=== PATIENT | female | born 1940 | race Caucasian/White ===

== ENCOUNTER 2017-11-26 20:03 | Observation (INO) ==
[2017-11-26 21:17] LABS: Baso % (Auto) 0.3 % (0.0-2.0); Eos # (Auto) 0.1 th/mm3 (0.0-0.4); Eos % (Auto) 1.3 % (0.0-4.0); Hematocrit 37.8 % (35.0-46.0); Hemoglobin 12.9 gm/dL (11.6-15.3); Lymph # (Auto) 1.2 th/mm3 (1.0-4.8); Lymph % (Auto) 17.7 % (9.0-44.0); Mean Corpuscular HGB Conc 34.2 % (32.0-36.0); Mean Corpuscular Hemoglobin 29.4 pg (27.0-34.0); Mean Platelet Volume 8.1 fL (7.0-11.0); Mono # (Auto) 0.5 th/mm3 (0.0-0.9); Mono % (Auto) 8.1 % (0.0-8.0); Neut % (Auto) 72.6 % (16.0-70.0); Platelet Count 240 th/mm3 (150-450); Red Blood Count 4.39 mil/mm3 (4.00-5.30); Red Cell Distribution Width 11.8 % (11.6-17.2); White Blood Count 6.8 th/mm3 (4.0-11.0)
[2017-11-26 21:24] LABS: Chloride 104 meq/L (98-107); Potassium 3.4 meq/L (3.5-5.1); Sodium 139 meq/L (136-145)
[2017-11-26 21:28] LABS: Anion Gap 5 meq/L (5-15); Blood Urea Nitrogen 20 mg/dL (7-18); Carbon Dioxide 29.9 meq/L (21.0-32.0); Glucose,Random 96 mg/dL (74-106); Magnesium 1.8 mg/dL (1.5-2.5)
--- NOTE | 2017-11-26 21:28 | ED ---
HPI General Chief Complaint: Fall Stated Complaint: Fall Time Seen by Provider: 11/26/17 20:45 Source: RN notes reviewed ([facility]) Mode of arrival: EMS Limitations: other (expressive aphasia) History of Present Illness HPI Narrative: 77-year-old female presents to the emergency department from local assisted living facility where staff noted patient to have 4 different falls today. Only one fall was reportedly witnessed. Patient was walking with her tray and a seem to lose her balance and fall. Subsequently patient was found 3 different times on the floor after an unwitnessed fall. Unknown if head injury. Patient has some form of expressive aphasia of unclear etiology and is not a good historian. Assisted living facility reports that patient has issue with conversational speech of uncertain etiology no report of stroke. Patient takes no blood thinning agents. Patient does have history of peripheral vascular disease and has undergone surgical intervention for ischemia. No report of recent fever. Patient has been at the facility for approximately 1 month and has been on the list to be seen by the but has not been seen in the past to Fridays. Patient has been noticed within the past 1 week to have large blisters to Facility physician for 2 weeks the heels of both feet of unclear etiology. Patient is identified to have a bruise to the right hip. Patient has had bilateral hip replacements in the past. Patient typically is amatory without assistive device. Patient had one episode of urinary incontinence associated with fall reported. Blood sugars have been adequately controlled. Patient has history of peripheral vascular disease diabetes pacemaker COPD depression dyslipidemia hypertension anemia PE and aortic stenting. MD complaint: Reports fall Related Data Home Medications Medication Instructions Recorded Confirmed acetaminophen [Mapap 325 mg PO Q4-6H PRN 11/26/17 11/26/17 (acetaminophen)] alendronate 70 mg PO QWEEK 11/26/17 11/26/17 [id number] 1 tab PO DAILY 11/26/17 11/26/17 [Cerovite Senior] omega 2-orp-qcg-fish oil [Fish Oil] 1,000 mg PO DAILY 11/26/17 11/26/17 Allergies Allergy/AdvReac Type Severity Reaction Status Date / Time aspirin Allergy Severe GI Unverified 11/26/17 20:17 DISTRESS IF UNCOATED ASPIRIN codeine Allergy Severe NAUSEA AND Unverified 11/26/17 20:17 VOMITING penicillin G Allergy Severe RASH,SHORTNESS Unverified 11/26/17 20:17 OF BREATH *MDRO Multi-Drug Resistant Allergy Unknown Diarrhea Uncoded 11/26/17 20:17 Organism Review of Systems ROS: all other systems reviewed are negative [facility] Medical History Medical History Atherosclerotic heart disease (Acute) COPD (chronic obstructive pulmonary disease) (Acute) GERD (gastroesophageal reflux disease) (Acute) History of anemia (Acute) History of diabetes mellitus (Acute) History of high cholesterol (Acute) Hx of major depression (Acute) Hypertension (Acute) Insomnia (Acute) Osteoarthritis (Acute) Pacemaker (Acute) Peripheral vascular disease (Acute) Polyneuropathy (Acute) Surgical history unknown (Acute) Surgical history unknown (Acute) Social History Social History Substance History: No History of Abuse Smoking Status: Unknown if ever smoked How Often Do You Have a Drink Containing Alcohol: Unable to Obtain Recent Travel in [facility] within the Last 8 Weeks: No Recent Out of Country Travel within the Last 8 Weeks: No Immunization History Tetanus Immunization: Unable to Assess Exam Narrative Exam Narrative: GENERAL: Well-developed well-nourished elderly female in no acute distress no respiratory distress GCS 13 SKIN: Focused skin assessment warm/dry. HEAD: Atraumatic. Normocephalic. No scalp soft tissue swelling abrasion laceration or bony abnormality to palpation. EYES: Pupils equal and round. No scleral icterus. No injection or drainage. Extraocular muscles intact. ENT: No nasal bleeding or discharge. Mucous membranes pink and moist. Airway is patent. NECK: Trachea midline. No JVD. Nontender to direct palpation along the cervical spine no bony step-off. CARDIOVASCULAR: Regular rate and rhythm. No murmur appreciated. RESPIRATORY: No accessory muscle use. Clear to auscultation. Breath sounds equal bilaterally. GASTROINTESTINAL: Abdomen soft, non-tender, nondistended. Hepatic and splenic margins not palpable. MUSCULOSKELETAL: No obvious deformities. No clubbing. No cyanosis. No edema. Bruising to the lateral aspect of the right hip subacute brown green discoloration. No limb length discrepancy. Left foot with amputated toes and various aged vesicles and blisters intact and interrupted. No antalgic movement when moving from lying supine to sitting upright which patient does independently without assistance from medical staff. No tenderness to direct palpation along the thoracic or lumbar spine no bony step-off no ecchymosis or abrasion to the upper or lower back or flank area. NEUROLOGICAL: Awake and alert. No obvious cranial nerve deficits. Motor grossly within normal limits. Normal speech. PSYCHIATRIC: Appropriate mood and affect; insight and judgment normal. Course Initial Documented Vital Signs Temperature 98.6 F 11/26/17 20:10 Pulse Rate 81 11/26/17 20:10 Respiratory Rate 20 11/26/17 20:10 Blood Pressure 161/76 H 11/26/17 20:10 Pulse Oximetry 98 11/26/17 20:10 Last Documented Vital Signs Temperature 98.6 F 11/26/17 20:10 Pulse Rate 77 11/26/17 22:37 Respiratory Rate 20 11/26/17 22:37 Blood Pressure 176/81 H 11/26/17 22:37 Pulse Oximetry 97 11/26/17 22:37 Medical Decision Making MDM Narrative Medical decision making narrative: 77-year-old female poor historian unclear extent of expressive aphasia and to what extent there may be a voluntary component however in view of inability to obtain further history from the patient and limited review of medical information provided by facility IV access obtained specimens collected and sent for resulting imaging studies ordered CT brain noncontrast suspicious for normal pressure hydrocephalus patient with frequent falls 3 of which were not witnessed today and one with episode of urinary incontinence as well as noted to have urinary tract infection will place patient in observation status to further assess if she does have findings to support normal pressure hydrocephalus and management of such. Patient given first dose of antibiotic in the emergency department. Patient's case discussed with on-call [facility] MD Dr Julian for observation admission Medical Screen Exam Complete: Yes Emergency Medical Condition: Yes Differential Diagnosis Differential Diagnosis: Generalized weakness, electrolyte disturbance, UTI, sepsis, arrhythmia, TIA, CVA, minor closed head injury, ICH, contusion, sprain strain subluxation fracture Medical Records Medical records reviewed: Yes I reviewed the patient's medical records. Lab Data Lab results reviewed: Yes I reviewed the patient's lab results. Result diagrams: 11/26/17 21:13 11/26/17 21:13 Lab Results 11/26/17 11/26/17 11/26/17 Range/Units 21:13 21:13 21:50 CBC w Diff Auto diff final WBC 6.8 (4.0-11.0) th/mm3 RBC 4.39 (4.00-5.30) mil/mm3 Hgb 12.9 (11.6-15.3) gm/dL Hct 37.8 (35.0-46.0) % MCV 86.0 (80.0-100.0) fL MCH 29.4 (27.0-34.0) pg MCHC 34.2 (32.0-36.0) % RDW 11.8 (11.6-17.2) % Plt Count 240 (150-450) th/mm3 MPV 8.1 (7.0-11.0) fL Neut % (Auto) 72.6 H (16.0-70.0) % Lymph % (Auto) 17.7 (9.0-44.0) % [place] % (Auto) 8.1 H (0.0-8.0) % Eos % (Auto) 1.3 (0.0-4.0) % Baso % (Auto) 0.3 (0.0-2.0) % Neut # (Auto) 5.0 (1.8-7.7) th/mm3 Lymph # (Auto) 1.2 (1.0-4.8) th/mm3 [place] # (Auto) 0.5 (0.0-0.9) th/mm3 Eos # (Auto) 0.1 (0.0-0.4) th/mm3 Baso # (Auto) 0.0 (0.0-0.2) th/mm3 WBC Differential . Differential Comment . Sodium 139 (136-145) meq/L Potassium 3.4 L (3.5-5.1) meq/L Chloride 104 (98-107) meq/L Carbon Dioxide 29.9 (21.0-32.0) meq/L Anion Gap 5 (5-15) meq/L BUN 20 H (7-18) mg/dL Creatinine 0.69 (0.50-1.00) mg/dL Estimated GFR 83 L (>89) mL/min Random Glucose 96 (74-106) mg/dL Calcium 8.0 L (8.5-10.1) mg/dL Magnesium 1.8 (1.5-2.5) mg/dL Total Bilirubin 0.5 (0.2-1.0) mg/dL AST 21 (15-37) U/L ALT 19 (10-53) U/L Alkaline Phosphatase 110 (45-117) U/L Troponin I Less than 0.02 L (0.02-0.05) ng/mL Total Protein 6.1 L (6.4-8.2) g/dL Albumin 3.0 L (3.4-5.0) g/dL Urine Color Yellow (Yellw/Straw) Urine Clarity Clear (Clear) Urine pH 5.5 (5.0-8.5) Ur Specific [place] 1.025 (1.002-1.035) Urine Protein Negative (Neg-Trace) mg/dL Urine Glucose (UA) Negative (Negative) mg/dL Urine Ketones Trace H (Negative) mg/dL Urine Occult Blood Trace (Negative) Urine Nitrate Negative (Negative) Urine Bilirubin Negative (Negative) Urine Urobilinogen 0.2 (Less than 2) mg/dL Ur Leukocyte Esterase Small H (Negative) Urine RBC 0-3 (0-3) /hpf Urine WBC 21-50 H (0-5) /hpf Ur Squamous Epith Cells 0-5 (0-5) /hpf Urine Bacteria Few H (None) /hpf Micro UA Comment Cath-culture ind Ur Microscopic Review Microscopic reviewed Urine Culture Comments Cath-cult indicated Imaging Data Radiologist's impression: Chest X-Ray 11/26/17 20:58 CONCLUSION: Mild compensated cardiomegaly. Pelvis X-Ray 11/26/17 20:58 CONCLUSION: Osteopenia without displaced fracture. Head CT 11/26/17 22:01 CONCLUSION: No evidence of acute intracranial pathology. No masses are identified. Possible normal pressure hydrocephalus. Correlation with clinical findings is necessary. . Cervical Spine CT 11/26/17 22:05 CONCLUSION: 1. Extensive multilevel degenerative disc disease without evidence of fracture ECG Data EKG Prior to Arrival: No Prior ECG tracings: not available for review Interpretation: EKG: Normal sinus rhythm rate [address] elevation injury pattern or ectopy noted nonspecific T wave changes noted anterolaterally Discharge Plan Discharge Disposition Patient Disposition: 30 Still Patient Discharge Condition Condition: Stable Discharge Details Diagnosis: Generalized weakness, UTI (urinary tract infection), Normal pressure hydrocephalus Physicians Team ED Provider: Ale Mclaughlin Primary Care Provider: UNKNOWN, Attending Provider: Melinda Julian ED Status: Admitted Observation Patient
[2017-11-26 21:31] LABS: Alanine Aminotransferase 19 U/L (10-53); Aspartate Aminotransferase 21 U/L (15-37); Glomerular Filtration Rate 83 mL/min (>89)
[2017-11-26 21:32] LABS: Total Protein 6.1 g/dL (6.4-8.2)
[2017-11-26 21:34] LABS: Alkaline Phosphatase 110 U/L (45-117)
--- NOTE | 2017-11-26 21:54 | XR ---
EXAM DATE: 11/26/2017 8:58 PM EDT AGE/SEX: 77 years / Female INDICATIONS: Trauma, fall. CLINICAL DATA: This is the patient's initial encounter. Patient reports that signs and symptoms have been present for 1 day and indicates a pain score of Nonresponsive. MEDICAL/SURGICAL HISTORY: None. . Bilateral hip replacement COMPARISON: [facility] [place] LATERAL ONLY WO AP PELVIS, 10/18/2012. . FINDINGS: Degenerative changes in the lower lumbar spine. Bilateral total hip arthroplasties Prostheses well seated. Alignment anatomic. Fracture not appreciated. CONCLUSION: Osteopenia without displaced fracture. Electronically signed by: Teofilo Torres MD 11/26/2017 9:53 PM EDT
--- NOTE | 2017-11-26 22:27 | XR ---
EXAM DATE: 11/26/2017 8:58 PM EDT AGE/SEX: 77 years / Female INDICATIONS: Trauma, fall. CLINICAL DATA: This is the patient's initial encounter. Patient reports that signs and symptoms have been present for 1 day and indicates a pain score of Nonresponsive. MEDICAL/SURGICAL HISTORY: Hypertension. Chronic obstructive pulmonary disease. Gastroesophage al reflux disease. Pacemaker. [place] [facility] [place]. . FINDINGS: Mild compensated cardiomegaly with surgical clips left upper lobe. No pneumothorax. No pleural effusi on. Anatomic alignment about both shoulders. CONCLUSION: Mild compensated cardiomegaly. Electronically signed by: Teofilo Torres MD 11/26/2017 10:25 PM EDT
[2017-11-26 22:34] LABS: Bilirubin,Urine Negative (Negative); Clarity,Urine Clear (Clear); Color,Urine Yellow (Yellw/Straw); Glucose,Urine (UA) Negative (Negative); Leukocyte Esterase,Urine Small (Negative); Nitrite,Urine Negative (Negative); PH,Urine 5.5 (5.0-8.5); Specific Gravity,Urine 1.025 (1.002-1.035); Urobilinogen,Urine 0.2 mg/dL (Less than 2)
[2017-11-26 22:47] LABS: Bacteria,Urine Few /hpf; RBC,Urine 0-3 /hpf (0-3); Squamous Epithelial Cell,Urine 0-5 /hpf (0-5); WBC,Urine 21-50 /hpf (0-5)
--- NOTE | 2017-11-26 23:40 | CT ---
EXAM DATE: 11/26/2017 10:46 PM EDT AGE/SEX: 77 years / Female INDICATIONS: Patient fall. CLINICAL DATA: This is the patient's initial encounter. Patient reports that signs and symptoms have been present for 1 day and indicates a pain score of Nonresponsive. MEDICAL/SURGICAL HISTORY: Chronic obstructive pulmonary disease. Gastroesophageal reflux disea se. Anemia. Atherosclerotic heart disease. Diabetes mellitus. High cholesterol. Hypertension. Pacemak er. Peripheral vascular disease. . RADIATION DOSE: 25.81 CTDI (mGy) COMPARISON: No prior exams available for comparison. TECHNIQUE: Contiguous axial images were obtained using helical multirow detector technique. The vol umetric data was post-processed with multiplanar reconstruction in oblique axial, sagittal, and coron al planes. Using automated exposure control and adjustment of the mA and/or kV according to patient s ize, radiation dose was kept as low as reasonably achievable to obtain optimal diagnostic quality martina ges. DICOM format image data is available electronically for review and comparison. FINDINGS: CT of the cervical spine was performed in sagittal and axial planes. There is anterolisthesis likely related to facet arthritis at C3-C4 likely related to facet arthritis. There is multilevel degenerati ve disc disease and marginal osteophyte formation maximal at C4-C5.. There is osteoarthritis involvin g the atlantoaxial joint with sclerosis and osteophyte formation. There is straightening of the dilip l cervical lordosis which may be secondary positioning or spasm. . No focal areas of marrow replacem ent are identified. The craniocervical junction appears normal. C2-C3: There is moderate facet arthritis on the right. There is no significant spinal canal stenosis . C3-C4: There is severe facet arthritis on the right. There is moderate neural foraminal narrowing o n the right. There is mild facet arthritis on the left. C4-C5: There is a large spur to the left. This compromises the nerve root exit zone. The neural fora bhupinder are clear bilaterally. C5-C6: There is uncovertebral joint hypertrophy bilaterally. There is moderate neural foraminal narr owing bilaterally. C6-C7: There is osteophytic ridging asymmetric to the right. There is uncovertebral joint hypertroph y on the right side. There is mild right-sided foraminal narrowing. C7-T1: No significant abnormalities identified. CONCLUSION: 1. Extensive multilevel degenerative disc disease without evidence of fracture Electronically signed by: Elieser Chen MD 11/26/2017 11:38 PM EDT
--- NOTE | 2017-11-26 23:41 | CT ---
EXAM DATE: 11/26/2017 10:46 PM EDT AGE/SEX: 77 years / Female INDICATIONS: Patient fall. CLINICAL DATA: This is the patient's initial encounter. Patient reports that signs and symptoms have been present for 1 day and indicates a pain score of Nonresponsive. MEDICAL/SURGICAL HISTORY: Chronic obstructive pulmonary disease. Gastroesophageal reflux disease. Atherosclerotic heart disease. Anemia. Diabetes mellitus. High cholesterol. Hypertension. Pacemaker. Peripheral vascular disease. . RADIATION DOSE: 56.57 CTDI (mGy) COMPARISON: No prior exams available for comparison. TECHNIQUE: CT of the head without contrast. Using automated exposure control and adjustment of the mA and/or kV according to patient size, radiation dose was kept as low as reasonably achievable to ob tain optimal diagnostic quality images. DICOM format image data is available electronically for revi ew and comparison. FINDINGS: Noncontrast axial head CT demonstrates the ventricles to be normal in size and configuration with a n ormal sulcal pattern. No acute intracranial hemorrhage, acute cortical infarction, mass or midline sh ift is seen. The ventricles are enlarged out of proportion to the sulcal atrophy. In addition the thi rd ventricle is somewhat prominent. Clinical correlation would be helpful in regards to the possibili ty of normal pressure hydrocephalus. Posterior fossa structures are unremarkable. Bone windows are unremarkable. CONCLUSION: No evidence of acute intracranial pathology. No masses are identified. Possible normal pressure hydr ocephalus. Correlation with clinical findings is necessary. . Electronically signed by: Elieser Chen MD 11/26/2017 11:39 PM EDT
[2017-11-26] MEDS ORDERED: Sodium Chlor 0.9% Inj 500 ML IV.SIG SCH (23:45)
[2017-11-26] MEDS ORDERED: Acetaminophen 500 MG Tablet PO ONE (23:47)
[2017-11-27] MEDS ORDERED: Acetaminophen 325 MG Tablet PO PRN (00:07)
[2017-11-27] MEDS ORDERED: Bisacodyl 10 MG Supp RECTAL PRN (00:07)
[2017-11-27] MEDS: Sod Chloride 0.9% Inj 1,000 ML IV.CONT SCH ×3 (00:54→21:47)
[2017-11-27] MEDS ORDERED: Senna/Docusate Sodium 8.6/50 MG Tablet PO SCH (09:00)
--- NOTE | 2017-11-27 13:41 | ECG ---
Date Performed: 11/26/2017 Time Performed: 21:21:57 PTAGE: 77 years EKG: Sinus rhythm NONSPECIFIC T-WAVE ABNORMALITY BORDERLINE ECG PREVIOUS TRACING : 10/10/2013 15.50 Since the previous tracing, no significant change noted DOCTOR: Jamel Flores Interpretating Date/Time 11/27/2017 13:40:40
--- NOTE | 2017-11-27 16:52 | P.HP ---
History of Present Illness Primary Care Physician: UNKNOWN Chief Complaint: Recurrent falls, diarrhea History of Present Illness: 77-year-old female who for past medical history of pacemaker implantation, suppressive aphasia, CAD, peripheral vascular disease, history of C. difficile in the past, hypertension was brought to the ED for evaluation of falls x4 of which one was witnessed at a local nursing facility where patient is a resident. Patient is a poor historian, and unable to provide any history at this time. The history is obtained from chart review below: "77-year-old female presents to the emergency department from local assisted living facility where staff noted patient to have 4 different falls today. Only one fall was reportedly witnessed. Patient was walking with her tray and a seem to lose her balance and fall. Subsequently patient was found 3 different times on the floor after an unwitnessed fall. Unknown if head injury. Patient has some form of expressive aphasia of unclear etiology and is not a good historian. [facility] living facility reports that patient has issue with conversational speech of uncertain etiology no report of stroke. Patient takes no blood thinning agents. Patient does have history of peripheral vascular disease and has undergone surgical intervention for ischemia. No report of recent fever. Patient has been at the facility for approximately 1 month and has been on the list to be seen by the but has not been seen in the past to Fridays. Patient has been noticed within the past 1 week to have large blisters to Facility physician for 2 weeks the heels of both feet of unclear etiology. Patient is identified to have a bruise to the right hip. Patient has had bilateral hip replacements in the past. Patient typically is amatory without assistive device. Patient had one episode of urinary incontinence associated with fall reported. Blood sugars have been adequately controlled. Patient has history of peripheral vascular disease diabetes pacemaker COPD depression dyslipidemia hypertension anemia PE and aortic stenting." While in the ED, a CT head was obtained and had a questionable finding of Possible normal pressure hydrocephalus. Patient was admitted on the floor and had few episode of loose stool for which C. difficile is being ruled out. Vitals with elevated BP. - Diagnosis (1) Fall (2) Generalized weakness (3) UTI (urinary tract infection) (4) Normal pressure hydrocephalus Review of Systems unobtainable due to mental condition PMF - History History Provided By: Patient, Medical Record - Medical History Medical History: Medical History (Last Reviewed 11/27/17 @ 07:18 by Jackson Rodas) Atherosclerotic heart disease COPD (chronic obstructive pulmonary disease) GERD (gastroesophageal reflux disease) History of anemia History of diabetes mellitus History of high cholesterol Hx of major depression Hypertension Insomnia Osteoarthritis Pacemaker Peripheral vascular disease Polyneuropathy Surgical history unknown Surgical history unknown - Tobacco History Second Hand Smoke Exposure: No Smoking Status: Never smoker - Alcohol History How Often Do You Have a Drink Containing Alcohol: Never - Substance Use History Substance History: No History of Abuse - Travel History Recent Travel in the [place] Within the Last 8 Weeks: No Recent Travel Out of the Country Within the Last 8 Weeks: No - Immunization History Tetanus Immunization: Unable to Assess Medications and Allergies Active Medications: Active Medications Acetaminophen (Tylenol) 650 mg PO Q4H PRN PRN Reason: Temp > 100.4 Al Hydroxide/Mg Hydroxide (Milk Of Magnkb Liq) 30 ml PO Q12H PRN PRN Reason: Mild Constipation Bisacodyl (Dulcolax Supp) 10 mg RECTAL DAILY PRN PRN Reason: SEVERE CONSITIPATION Enalaprilat (Vasotec Inj) 2.5 mg IV.PUSH Q6H PRN PRN Reason: SBP>160, DBP>90 Sodium Chloride (Ns Inj) 500 mls @ 0 mls/hr IV.SIG BOLUS AVRIL Last Infusion: 11/27/17 00:50 Dose: Infused Ciprofloxacin/Dextrose (Cipro 400 Mg/200 Ml Inj) 400 mg in 200 mls @ 200 mls/ hr IV.SIG Q12H AVRIL Sodium Chloride (Ns Inj) 1,000 mls @ 100 mls/hr IV.CONT .Q10H AVRIL Last Admin: 11/27/17 11:40 Dose: 100 mls/hr Ondansetron HCl (Zofran Inj) 4 mg IV.PUSH Q6H PRN PRN Reason: NAUSEA OR VOMITING Sodium Chloride (Ns Flush) 2 ml IV.FLUSH PRN PRN PRN Reason: FLUSH AFTER USING IV ACCESS Allergies Allergy/AdvReac Type Severity Reaction Status Date / Time aspirin Allergy Severe GI Verified 11/27/17 04:35 DISTRESS IF UNCOATED ASPIRIN codeine Allergy Severe NAUSEA AND Verified 11/27/17 04:35 VOMITING penicillin G Allergy Severe RASH,SHORTNESS Verified 11/27/17 04:35 OF BREATH *MDRO Multi-Drug Resistant Allergy Unknown Diarrhea Uncoded 11/26/17 20:17 Organism Home Medications Medication Instructions Recorded Confirmed Type acetaminophen [Mapap 325 mg PO Q4-6H PRN 11/26/17 11/26/17 History (acetaminophen)] alendronate 70 mg PO QWEEK 11/26/17 11/26/17 History [id number] 1 tab PO DAILY 11/26/17 11/26/17 History [Cerovite Senior] omega 6-ckl-ykw-fish oil [Fish Oil] 1,000 mg PO DAILY 11/26/17 11/26/17 History Exam Vital signs: Vital Signs 11/26/17 20:10 11/26/17 21:17 11/26/17 22:37 Temperature 98.6 F Pulse Rate 81 77 77 Respiratory Rate 20 18 20 Blood Pressure 161/76 H 198/86 H 176/81 H Pulse Oximetry 98 97 97 11/27/17 02:30 11/27/17 04:29 11/27/17 05:45 Temperature Pulse Rate 73 75 71 Respiratory Rate 16 16 16 Blood Pressure 174/82 H 218/86 H 149/61 H Pulse Oximetry 98 99 96 11/27/17 06:45 11/27/17 07:26 11/27/17 08:00 Temperature 97.0 F L Pulse Rate 61 62 65 Respiratory Rate 15 18 Blood Pressure 133/67 186/78 H Pulse Oximetry 96 98 98 11/27/17 12:00 11/27/17 16:00 Temperature 97.4 F L 98.4 F Pulse Rate 77 67 Respiratory Rate 18 18 Blood Pressure 190/84 H 145/65 H Pulse Oximetry 96 97 Intake & Output 11/26/17 11/27/17 11/27/17 18:59 06:59 18:59 Intake Total 600 / 600 1000 / 1000 Balance 600 / 600 1000 / 1000 Weight 54 kg Intake: IV 600 / 600 1000 / 1000 NS Inj 1,000 ML @ 100 mls/hr IV 1000 / 1000 .CONT .Q10H AVRIL Rx#:[id number] NS Inj 500 ML @ Wide Open IV. 500 / 500 SIG BOLUS AVRIL Rx#:[id number] Rocephin Inj 1,000 MG In NS Inj 100 / 100 100 ML @ 200 mls/hr IV.SIG ONCE ONE Rx#:[id number] Narrative: GENERAL: NAD with expressive aphasia SKIN: Warm and dry. HEAD: Atraumatic. Normocephalic. EYES: Pupils equal and round. No scleral icterus. No injection or drainage. ENT: No nasal bleeding or discharge. Mucous membranes pink and moist. NECK: Trachea midline. No JVD. CARDIOVASCULAR: Regular rate and rhythm. RESPIRATORY: No accessory muscle use. Clear to auscultation. Breath sounds equal bilaterally. GASTROINTESTINAL: Abdomen soft, non-tender, nondistended. Hepatic and splenic margins not palpable. MUSCULOSKELETAL: Extremities without clubbing, cyanosis, or edema. No obvious deformities. NEUROLOGICAL: Awake and alert. No obvious cranial nerve deficits. Motor grossly within normal limits. Results - Labs CBC & Chem 7: 11/26/17 21:13 11/26/17 21:13 Labs: Laboratory Results - last 24 hr 11/26/17 11/26/17 11/26/17 21:13 21:13 21:50 CBC w Diff Auto diff final WBC 6.8 RBC 4.39 Hgb 12.9 Hct 37.8 MCV 86.0 MCH 29.4 MCHC 34.2 RDW 11.8 Plt Count 240 MPV 8.1 Neut % (Auto) 72.6 H Lymph % (Auto) 17.7 [place] % (Auto) 8.1 H Eos % (Auto) 1.3 Baso % (Auto) 0.3 Neut # (Auto) 5.0 Lymph # (Auto) 1.2 [place] # (Auto) 0.5 Eos # (Auto) 0.1 Baso # (Auto) 0.0 WBC Differential . Differential Comment . Sodium 139 Potassium 3.4 L Chloride 104 Carbon Dioxide 29.9 Anion Gap 5 BUN 20 H Creatinine 0.69 Estimated GFR 83 L POC Glucose Random Glucose 96 Calcium 8.0 L Magnesium 1.8 Total Bilirubin 0.5 AST 21 ALT 19 Alkaline Phosphatase 110 Troponin I Less than 0.02 L Total Protein 6.1 L Albumin 3.0 L Urine Color Yellow Urine Clarity Clear Urine pH 5.5 Ur Specific [place] 1.025 Urine Protein Negative Urine Glucose (UA) Negative Urine Ketones Trace H Urine Occult Blood Trace Urine Nitrate Negative Urine Bilirubin Negative Urine Urobilinogen 0.2 Ur Leukocyte Esterase Small H Urine RBC 0-3 Urine WBC 21-50 H Ur Squamous Epith Cells 0-5 Urine Bacteria Few H Micro UA Comment Cath-culture ind Ur Microscopic Review Microscopic reviewed Urine Culture Comments Cath-cult indicated 11/27/17 11/27/17 07:41 11:27 CBC w Diff WBC RBC Hgb Hct MCV MCH MCHC RDW Plt Count MPV Neut % (Auto) Lymph % (Auto) [place] % (Auto) Eos % (Auto) Baso % (Auto) Neut # (Auto) Lymph # (Auto) [place] # (Auto) Eos # (Auto) Baso # (Auto) WBC Differential Differential Comment Sodium Potassium Chloride Carbon Dioxide Anion Gap BUN Creatinine Estimated GFR POC Glucose 85 169 H Random Glucose Calcium Magnesium Total Bilirubin AST ALT Alkaline Phosphatase Troponin I Total Protein Albumin Urine Color Urine Clarity Urine pH Ur Specific [place] Urine Protein Urine Glucose (UA) Urine Ketones Urine Occult Blood Urine Nitrate Urine Bilirubin Urine Urobilinogen Ur Leukocyte Esterase Urine RBC Urine WBC Ur Squamous Epith Cells Urine Bacteria Micro UA Comment Ur Microscopic Review Urine Culture Comments - Imaging Impressions Chest X-Ray 11/26/17 20:58 CONCLUSION: Mild compensated cardiomegaly. Pelvis X-Ray 11/26/17 20:58 CONCLUSION: Osteopenia without displaced fracture. Head CT 11/26/17 22:01 CONCLUSION: No evidence of acute intracranial pathology. No masses are identified. Possible normal pressure hydrocephalus. Correlation with clinical findings is necessary. . Cervical Spine CT 11/26/17 22:05 CONCLUSION: 1. Extensive multilevel degenerative disc disease without evidence of fracture Caprini VTE Risk Assessment Caprini VTE Risk Assessment: Moderate/High Risk (score >= 2) Caprini Risk Assessment Model: Point Value = 1 Point Value = 2 Point Value = 3 Point Value = 5 Age 41-60 Minor surgery BMI > 25 kg/m2 Swollen legs Varicose veins or History of unexplained or recurrent spontaneous Oral contraceptives or hormone replacement Sepsis (< 1 month) Serious lung disease, including pneumonia (< 1 month) Abnormal pulmonary function Acute myocardial infarction Congestive heart failure (< 1 month) History of inflammatory bowel disease Medical patient at bed rest Age 61-74 Arthroscopic surgery Major open surgery (> 45 min) Laparoscopic surgery (> 45 min) Malignancy Confined to bed (> 72 hours) Immobilizing plaster cast Central venous access Age >= 75 History of VTE Family history of VTE Factor V Leiden Prothrombin [id number] Lupus anticoagulant Anticardiolipin antibodies Elevated serum homocysteine Heparin-induced thrombocytopenia Other congenital or acquired thrombophilia Stroke (< 1 month) Elective arthroplasty Hip, pelvis, or leg fracture Acute spinal cord injury (< 1 month) Prophylaxis Regimen: Total Risk Factor Score Risk Level Prophylaxis Regimen 0-1 Low Early ambulation 2 Moderate Order ONE of the following: *Sequential Compression Device (SCD) *Heparin 5000 units SQ BID 3-4 Higher Order ONE of the following medications: *Heparin 5000 units SQ TID *Enoxaparin/Lovenox 40 mg SQ daily (WT < 150 kg, CrCl > 30 mL/min) *Enoxaparin/Lovenox 30 mg SQ daily (WT < 150 kg, CrCl > 10-29 mL/min) *Enoxaparin/Lovenox 30 mg SQ BID (WT < 150 kg, CrCl > 30 mL/min) AND/OR *Sequential Compression Device (SCD) 5 or more Highest Order ONE of the following medications: *Heparin 5000 units SQ TID (Preferred with Epidurals) *Enoxaparin/Lovenox 40 mg SQ daily (WT < 150 kg, CrCl > 30 mL/min) *Enoxaparin/Lovenox 30 mg SQ daily (WT < 150 kg, CrCl > 10-29 mL/min) *Enoxaparin/Lovenox 30 mg SQ BID (WT < 150 kg, CrCl > 30 mL/min) AND *Sequential Compression Device (SCD) Assessment and Plan - Assessment (1) Fall Code(s): W19.XXXA - Unspecified fall, initial encounter Status: Acute (2) Generalized weakness Code(s): R53.1 - Weakness Status: Acute (3) UTI (urinary tract infection) Code(s): N39.0 - Urinary tract infection, site not specified Status: Acute (4) Normal pressure hydrocephalus Code(s): G91.2 - (Idiopathic) normal pressure hydrocephalus Status: Acute - Plan 77-year-old female with Normal pressure hydrocephalus rule out CT head noted and reviewed by me with questionable finding of NPH Secondary to history of pacemaker implantation, unable to perform brain MRI We will consult interventional radiology for lumbar puncture Neurosurgery consultation as needed Frequent falls Radiographic imaging study reviewed and no evidence of fractures PT consult to treat and eval Abnormal UA Currently on IV Cipro pending urine culture Diarrhea C. difficile PCR pending and treat accordingly Hypokalemia Replace electrolytes and monitor Other chronic medical conditions Continue outpatient medications DVT prophylaxis: Bilateral SCDs
[2017-11-28 05:31] LABS: Baso # (Auto) 0.2 th/mm3 (0.0-0.2); Baso % (Auto) 2.1 % (0.0-2.0); Eos # (Auto) 0.1 th/mm3 (0.0-0.4); Eos % (Auto) 1.8 % (0.0-4.0); Lymph # (Auto) 1.3 th/mm3 (1.0-4.8); Lymph % (Auto) 16.5 % (9.0-44.0); Mean Corpuscular HGB Conc 32.6 % (32.0-36.0); Mean Corpuscular Hemoglobin 28.4 pg (27.0-34.0); Mean Platelet Volume 8.4 fL (7.0-11.0); Mono # (Auto) 0.6 th/mm3 (0.0-0.9); Mono % (Auto) 7.6 % (0.0-8.0); Neut # (Auto) 5.5 th/mm3 (1.8-7.7); Platelet Count 234 th/mm3 (150-450); Red Cell Distribution Width 11.8 % (11.6-17.2); White Blood Count 7.7 th/mm3 (4.0-11.0)
[2017-11-28 05:49] LABS: Chloride 109 meq/L (98-107); Potassium 3.4 meq/L (3.5-5.1); Sodium 141 meq/L (136-145)
[2017-11-28 05:56] LABS: Albumin 2.8 g/dL (3.4-5.0); Anion Gap 7 meq/L (5-15); Calcium 7.7 mg/dL (8.5-10.1); Carbon Dioxide 25.3 meq/L (21.0-32.0); Glucose,Random 95 mg/dL (74-106)
[2017-11-28 05:57] LABS: Blood Urea Nitrogen 9 mg/dL (7-18)
[2017-11-28] MEDS: Sod Chloride 0.9% Inj 1,000 ML IV.CONT SCH ×2 (05:59→17:41)
[2017-11-28 06:03] LABS: Alkaline Phosphatase 98 U/L (45-117); Aspartate Aminotransferase 23 U/L (15-37); Glomerular Filtration Rate Greater Than 89 mL/min (>89); Total Protein 5.7 g/dL (6.4-8.2)
[2017-11-28 06:06] LABS: Alanine Aminotransferase 16 U/L (10-53)
[2017-11-28] MEDS: Ciprofloxacin 400 MG/200 ML 400 MG/200 ML PIGGYBACK IV.SIG SCH ×2 (09:07→21:24)
--- NOTE | 2017-11-28 13:34 | P.PN ---
Subjective Interval history: Follow-up fall/UTI/questionable NPH November 28, 2017-patient seen and examined, much more alert and oriented to self. Following commands. Afebrile. Physical Exam Vital signs: Vital Signs 11/27/17 16:00 11/28/17 00:00 11/28/17 08:00 Temperature 98.4 F 97.9 F 97.9 F Pulse Rate 67 73 69 Respiratory Rate 18 18 20 Blood Pressure 145/65 H 166/77 H 194/78 H Pulse Oximetry 97 98 97 Intake & Output 11/27/17 11/28/17 11/28/17 18:59 06:59 18:59 Intake Total 1000 / 1000 2100 / 2100 200 / 200 Output Total 400 / 400 400 / 400 Balance 600 / 600 1700 / 1700 200 / 200 Weight 57 kg Intake: IV 1000 / 1000 2000 / 2000 200 / 200 NS Inj 1,000 ML @ 100 mls/hr IV 1000 / 1000 2000 / 2000 .CONT .Q10H AVRIL Rx#:[id number] Cipro 400 MG/200 ML Inj 400 mg 200 / 200 In 200 ml @ 200 mls/hr IV.SIG Q12H AVRIL Rx#:[id number] Oral 100 / 100 0 / 0 Output: Urine 400 / 400 400 / 400 Other: # Bowel Movements 3 Narrative: GENERAL: NAD with expressive aphasia SKIN: Warm and dry. HEAD: Atraumatic. Normocephalic. EYES: Pupils equal and round. No scleral icterus. No injection or drainage. ENT: No nasal bleeding or discharge. Mucous membranes pink and moist. NECK: Trachea midline. No JVD. CARDIOVASCULAR: Regular rate and rhythm. RESPIRATORY: No accessory muscle use. Clear to auscultation. Breath sounds equal bilaterally. GASTROINTESTINAL: Abdomen soft, non-tender, nondistended. Hepatic and splenic margins not palpable. MUSCULOSKELETAL: Extremities without clubbing, cyanosis, or edema. No obvious deformities. NEUROLOGICAL: Awake and alert. No obvious cranial nerve deficits. Motor grossly within normal limits. - Urinary Catheter Management Straight Cath placed during this visit: yes, but has since been removed by the nurse Reason for continuing: Not indwelling catheter Insertion date: 11/26/17 Insertion time: 21:50 Removal date: 11/26/17 Removal time: 21:53 Results - Labs CBC & Chem 7: 11/28/17 05:15 11/28/17 05:15 Laboratory Results - last 24 hr 11/26/17 11/27/17 11/28/17 21:50 20:13 05:15 CBC w Diff Auto diff final WBC 7.7 RBC 4.60 Hgb 13.0 Hct 40.0 MCV 87.0 MCH 28.4 MCHC 32.6 RDW 11.8 Plt Count 234 MPV 8.4 Neut % (Auto) 72.0 H Lymph % (Auto) 16.5 [place] % (Auto) 7.6 Eos % (Auto) 1.8 Baso % (Auto) 2.1 H Neut # (Auto) 5.5 Lymph # (Auto) 1.3 [place] # (Auto) 0.6 Eos # (Auto) 0.1 Baso # (Auto) 0.2 WBC Differential . Differential Comment . Sodium Potassium Chloride Carbon Dioxide Anion Gap BUN Creatinine Estimated GFR POC Glucose 146 H Random Glucose Calcium Total Bilirubin AST ALT Alkaline Phosphatase Total Protein Albumin Urine Color Yellow Urine Clarity Clear Urine pH 5.5 Ur Specific [place] 1.025 Urine Protein Negative Urine Glucose (UA) Negative Urine Ketones Trace H Urine Occult Blood Trace Urine Nitrate Negative Urine Bilirubin Negative Urine Urobilinogen 0.2 Ur Leukocyte Esterase Small H Urine RBC 0-3 Urine WBC 21-50 H Ur Squamous Epith Cells 0-5 Urine Bacteria Few H Micro UA Comment Cath-culture ind Ur Microscopic Review Microscopic reviewed Urine Culture Comments Cath-cult indicated 11/28/17 11/28/17 11/28/17 05:15 07:41 11:22 CBC w Diff WBC RBC Hgb Hct MCV MCH MCHC RDW Plt Count MPV Neut % (Auto) Lymph % (Auto) [place] % (Auto) Eos % (Auto) Baso % (Auto) Neut # (Auto) Lymph # (Auto) [place] # (Auto) Eos # (Auto) Baso # (Auto) WBC Differential Differential Comment Sodium 141 Potassium 3.4 L Chloride 109 H Carbon Dioxide 25.3 Anion Gap 7 BUN 9 Creatinine 0.54 Estimated GFR Greater than 89 POC Glucose 98 94 Random Glucose 95 Calcium 7.7 L Total Bilirubin 0.8 AST 23 ALT 16 Alkaline Phosphatase 98 Total Protein 5.7 L Albumin 2.8 L Urine Color Urine Clarity Urine pH Ur Specific [place] Urine Protein Urine Glucose (UA) Urine Ketones Urine Occult Blood Urine Nitrate Urine Bilirubin Urine Urobilinogen Ur Leukocyte Esterase Urine RBC Urine WBC Ur Squamous Epith Cells Urine Bacteria Micro UA Comment Ur Microscopic Review Urine Culture Comments Microbiology 11/26/17 21:50 Catheterized Urine Urine Culture - Preliminary Group D Enterococcus Assessment and Plan - Assessment (1) Fall Code(s): W19.XXXA - Unspecified fall, initial encounter Status: Acute (2) Generalized weakness Code(s): R53.1 - Weakness Status: Acute (3) UTI (urinary tract infection) Code(s): N39.0 - Urinary tract infection, site not specified Status: Acute (4) Normal pressure hydrocephalus Code(s): G91.2 - (Idiopathic) normal pressure hydrocephalus Status: Acute - Plan 77-year-old female with Normal pressure hydrocephalus rule out CT head noted and reviewed by me with questionable finding of NPH Secondary to history of pacemaker implantation, unable to perform brain MRI We will consult interventional radiology for lumbar puncture today November Neurosurgery consultation as needed Frequent falls Radiographic imaging study reviewed and no evidence of fractures PT to treat and eval Abnormal UA Currently on IV Cipro pending urine culture Diarrhea C. difficile PCR pending and treat accordingly Hypokalemia Replace electrolytes and monitor Other chronic medical conditions Continue outpatient medications DVT prophylaxis: Bilateral SCDs
[2017-11-28] MEDS ORDERED: Potassium Chloride 25 MEQ Effervescent Tablet PO ONE (14:00)
--- NOTE | 2017-11-28 16:28 | P.RAD ---
Post Procedure Progress Note - Pre Procedure Diagnosis (1) Normal pressure hydrocephalus - Post Procedure Diagnosis (1) Normal pressure hydrocephalus - Procedure Information Procedure Date: 11/28/17 Supervising Radiologist: Riki James Jr, MD Proceduralist/Assist: Joya Betancourt Anesthesia: Local - Plan of Activity Patient to Unit: Nursing Unit Patient Condition: Good See PACS Report for procedural detail/treatment. Spinal Procedure Lumbar Puncture L2-L3 Fluid Removal (CCs): 15 Fluid Description: Clear Puncture Time: 16:20 Findings: Opening pressure: 10 cm H20 Closing pressure: 6 cmH20
--- NOTE | 2017-11-28 16:43 | P.PNWCN ---
Wound Care Nurse Consult Description: wound consult ordered by for wound management. Communicated with: Zoila MONTEJO Recommendation: 1. Float bilateral heels avoiding contact with surface. 2 Apply Cavilon skin prep TID 3. Ensure patient keeps bilateral lower extremities elevated to reduce edema. Additional information: patient was seen today by check writer salesperson and Zoila MONTEJO for wound management of bilateral lower extremities.Patient alert resting in bed upon check writer salesperson arrival.Water Pollution Scientist was able to visualize bilateral lower extremities. 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
[2017-11-28 18:00] LABS: Lymphocytes, CSF 56 %; Monocytes,CSF 40 %; Neutrophils,CSF 4 %; RBC on Tube 4 10 /mm3
[2017-11-29] MEDS: Sod Chloride 0.9% Inj 1,000 ML IV.CONT SCH (04:16)
[2017-11-29] MEDS: Ciprofloxacin 400 MG/200 ML 400 MG/200 ML PIGGYBACK IV.SIG SCH (08:05)
--- NOTE | 2017-11-29 09:30 | IR ---
EXAM DATE: 11/28/2017 12:00 AM EDT AGE/SEX: 77 years / Female INDICATIONS: Patient presents with possible normal pressure hydrocephalus. CLINICAL DATA: This is the patient's initial encounter. Patient reports that signs and symptoms have been present for 1 day and indicates a pain score of Nonresponsive. MEDICAL/SURGICAL HISTORY: Chronic obstructive pulmonary disease. Gastroesophageal reflux disea se. Diabetes. Hypertension, Insomnia, Peripheral vascular disease, Osteoarthritis, Pacemaker. Pietro ateral hip replacements COMPARISON: No prior exams available for comparison. FLUORO TIME (min): 1:05 IMAGE SERIES: 2 ACCESS SITE: L2-3 - LUMBAR PUNCTURE TIME: 1618 hours OPENING PRESSURE: 10 cm of water CLOSING PRESSURE: 6 cm of water FLUID: Total volume of 17 cc of clear fluid was removed. Fluid was sent to lab for ordered studies. ; . . PROCEDURE: 1. Fluoroscopic guided lumbar puncture. The risks, benefits and alternatives to the procedure were explained and verbal and written consent w as obtained. The site was prepped in sterile fashion. Full sterile technique was used, including ca p, mask, sterile gloves and gown and a large sterile sheet. Hand hygiene and 2% chlorhexidine and/or betadine/alcohol prep was utilized per protocol for cutaneous antisepsis. The skin and subcutaneous tissues were infiltrated with local anesthetic solution. With fluoroscopic guidance the lumbar thecal sac was punctured at the level above. The fluid describ ed above was removed without difficulty. The patient tolerated the procedure well and there were no complications. CONCLUSION: 1. Uncomplicated fluoroscopically guided lumbar puncture. Clear CSF noted. Opening and closing press ures within the normal range. Electronically signed by: Riki James MD 11/29/2017 9:29 AM EDT
--- NOTE | 2017-11-29 09:39 | P.PNIM ---
Subjective Interval history: f/u; frequent falls in no acute distress. denies pain. awake but not oriented to place or time. Physical Exam Vital signs: Vital Signs 11/28/17 12:00 11/28/17 14:00 11/28/17 16:00 Temperature 97.3 F L 98.4 F 98.4 F Pulse Rate 80 74 74 Respiratory Rate 22 20 20 Blood Pressure 151/68 H 196/70 H 196/70 H Pulse Oximetry 95 97 97 11/28/17 16:26 11/28/17 18:37 11/29/17 00:00 Temperature 97.9 F 98.2 F 98.5 F Pulse Rate 76 85 76 Respiratory Rate 18 18 Blood Pressure 180/84 H 179/81 H 177/70 H Pulse Oximetry 97 97 Intake & Output 11/28/17 11/29/17 11/29/17 18:59 06:59 18:59 Intake Total 1680 / 1680 1600 / 1600 200 / 200 Output Total 1202 / 1202 500 / 500 Balance 478 / 478 1100 / 1100 200 / 200 Weight 57.3 kg Intake: IV 1200 / 1200 1500 / 1500 200 / 200 NS Inj 1,000 ML @ 100 mls/hr IV 1000 / 1000 1300 / 1300 .CONT .Q10H [facility] Rx#:[id number] Cipro 400 MG/200 ML Inj 400 mg 200 / 200 200 / 200 200 / 200 In 200 ml @ 200 mls/hr IV.SIG Q12H [facility] Rx#:[id number] Oral 480 / 480 100 / 100 Output: Urine 1200 / 1200 500 / 500 Stool 2 / 2 Other: Date of Last Bowel Movement 11/28/17 11/28/17 - Constitutional no acute distress - Routine Respiratory Exam Present: CTA bilaterally - Routine Cardiovascular Exam Present: RRR - Routine Abdominal Exam Present: soft - Routine Extremities Exam Comments: no pedal edema. - Routine Neurological Exam Present: alert (not oriented to place or time.) - Urinary Catheter Management Straight Cath placed during this visit: yes, but has since been removed by the nurse Reason for continuing: Not indwelling catheter Insertion date: 11/26/17 Insertion time: 21:50 Removal date: 11/26/17 Removal time: 21:53 Results - Labs CBC & Chem 7: 11/28/17 05:15 11/28/17 05:15 Laboratory Results - last 24 hr 11/28/17 11/28/17 11/28/17 11:22 14:00 16:18 POC Glucose 94 CSF Volume (1) CSF Supernat Color (1) CSF Volume (2) CSF Supernat Color (2) CSF Volume (3) CSF Supernat Color (3) CSF Volume (4) CSF Supernat Color (4) CSF WBC (4) CSF RBC (4) CSF Neutrophils % CSF Lymphocytes % CSF Monocytes % CSF Glucose 57 CSF Lactic Acid CSF Total Protein Stl C.difficile DNA Amp Negative St C. diff Tox Epid 027 Negative 11/28/17 11/28/17 11/28/17 16:18 16:18 16:18 POC Glucose CSF Volume (1) 4.5 CSF Supernat Color (1) Clear CSF Volume (2) 4.0 CSF Supernat Color (2) Clear CSF Volume (3) 4.0 CSF Supernat Color (3) Clear CSF Volume (4) 4.0 CSF Supernat Color (4) Clear CSF WBC (4) 2 CSF RBC (4) 10 H CSF Neutrophils % 4 CSF Lymphocytes % 56 CSF Monocytes % 40 CSF Glucose CSF Lactic Acid 1.6 CSF Total Protein 41.1 Stl C.difficile DNA Amp St C. diff Tox Epid 027 11/28/17 19:21 POC Glucose 117 H CSF Volume (1) CSF Supernat Color (1) CSF Volume (2) CSF Supernat Color (2) CSF Volume (3) CSF Supernat Color (3) CSF Volume (4) CSF Supernat Color (4) CSF WBC (4) CSF RBC (4) CSF Neutrophils % CSF Lymphocytes % CSF Monocytes % CSF Glucose CSF Lactic Acid CSF Total Protein Stl C.difficile DNA Amp St C. diff Tox Epid 027 Microbiology 11/26/17 21:50 Catheterized Urine Urine Culture - Final Enterococcus faecalis 11/28/17 16:18 Lumbar Puncture Gram Stain - Final - Imaging Impressions Lumbar Puncture Fluoroscopy 11/28/17 00:00 CONCLUSION: 1. Uncomplicated fluoroscopically guided lumbar puncture. Clear CSF noted. Opening and closing pressures within the normal range. Assessment and Plan - Assessment (1) Fall Code(s): W19.XXXA - Unspecified fall, initial encounter Status: Acute (2) Generalized weakness Code(s): R53.1 - Weakness Status: Acute (3) UTI (urinary tract infection) Code(s): N39.0 - Urinary tract infection, site not specified Status: Acute (4) Normal pressure hydrocephalus Code(s): G91.2 - (Idiopathic) normal pressure hydrocephalus Status: Acute - Plan possible Normal pressure hydrocephalus with frequent falls CT head noted with questionable finding of NPH s/p LP no history of pacemaker placement per the daughter; will check MRI brain will consult Neurology Frequent falls Radiographic imaging study reviewed and no evidence of fractures PT to treat and eval UTI with enterococcus - stop Cipro and start on Nitrofurantoin Diarrhea C. difficile PCR negative. Hypokalemia Replaced. Other chronic medical conditions Continue outpatient medications DVT prophylaxis: Bilateral SCDs Discharge Planning: needs rehab- awaiting neurology evaluation.
[2017-11-29] MEDS: Nitrofurantoin Monohydrate-Macrocrystal 100 MG Capsule PO SCH ×2 (10:00→17:47)
--- NOTE | 2017-11-29 13:23 | MB ---
cc: Marjorie Zavala MD DATE: 11/29/2017 REASON FOR CONSULTATION: Possible NPH. HISTORY OF PRESENT ILLNESS: This is a 77-year-old woman who has a history of pacemaker, heart disease, peripheral vascular disease, history of C. difficile, hypertension, fall in 2013 with a left femoral neck fracture and repair, who comes in from some type of nursing facility for falling. Apparently had 4 falls witnessed. The patient cannot tell me any history. She probably has some type of a dementia process. Apparently one time she was walking with her tray and lost her balance and 3 other times states that she was found on the floor. The patient cannot give me any history. She had a CT that shows atrophy; however, there is a 2013 CT shows moderate atrophy and white matter changes. I am not sure if this was ever compared, if not it should be. She did have a lumbar puncture; however, there is no mention if it was a high volume tap. It does state how much was taken out, but not if there was any improvement in her cognition or gait. PAST MEDICAL HISTORY: As stated. SOCIAL HISTORY: Unknown except she lives in some type of assisted facility. PHYSICAL EXAMINATION: VITAL SIGNS: Temperature is 98.9, pulse 79, respiratory rate 20, blood pressure 193/84, saturating at 95% on room air. NECK: Supple. I do not appreciate any bruits. HEART: Regular. NEUROLOGIC: She is awake and alert. She can tell me her name, but is not oriented to place or time. Speech is pressured. Her pupils are reactive. Face looks symmetrical. Tone is normal. She seems to move everything; however, does not follow for strength testing. DTRs 1+. Toes withdraw. Gait deferred to PT. LABORATORY DATA: Her CBC is really unremarkable. Chemistries: Potassium 3.4, glucose 117, albumin 2.8. Her urine has small leukocyte esterase, culture is pending. Her LP shows 10 red cells, 2 white cells, glucose 57. Lactic acid 1.6, protein 41.1. She had a difficile testing as well that was negative. Microbiology, final cultures, enterococcus faecalis. There is a Gram stain on the foot wound that is pending as well as CSF culture. However, the first culture no growth in 24 hours. She had imaging studies. She had CT of the head that does show enlarged, out of proportion, ventricles and sulci atrophy, as well as a third ventricle somewhat prominent. Clinical correlation, of course, with NPH. As far as her spinal tap she had a normal opening pressure of 10 and they took out 17 mL of clear fluid. ASSESSMENT AND PLAN: A 77-year-old woman with dementia process, could have NPH. Fortunately with her pacemaker an MRI cannot be done. She very well just may have dementia. She has had a fall before in 2012. She has had significant atrophy in the past. Go back to her old images. Unfortunately they cannot be visualized because of the timeframe, but again, she has moderate atrophy at that time. I cannot rule out NPH by current exam. The only way I think that would be more appropriate if she would have a neurosurgical consult. If they feel the they can have a drain placed with IR and then get her up daily to see if her mentation and her walking improves. I believe this needs to be done at [facility]. Please call me with any questions. Of note, I did continue treating her urinary tract infection with Macrobid. I did an EEG and RPR and B12 level. MD LOPEZ Vernon/atif , 01:00 PM , 01:11 PM
--- NOTE | 2017-11-29 22:23 | MG ---
cc: Patrice Flores MD EEG NUMBER: [id number] 5-7 Hz high amplitude, 20-60 microvolt activity in the background. Occasional delta activity. Left frontotemporal high frequency artifact occurring intermittent to continuous. Background slowing with transition through what appeared to be drowsy and sleep state. Slower waveforms, slow eye movements and reduced myogenic artifact. Limited driving with photic stimulation. Single lead EKG showing sinus rhythm. INTERPRETATION: Mild to moderate encephalopathy. Clinical correlation. Patrice Flores MD MG/sj , 08:52 PM , 08:59 PM
[2017-11-30] MEDS: Nitrofurantoin Monohydrate-Macrocrystal 100 MG Capsule PO SCH ×2 (08:18→19:06)
--- NOTE | 2017-11-30 09:10 | P.PNIM ---
Subjective Interval history: f/u; frequent falls in no acute distress. resting comfortably. BP trend noted. Physical Exam Vital signs: Vital Signs 11/29/17 10:10 11/29/17 13:49 11/29/17 16:00 Temperature 98.9 F 97.8 F 98.6 F Pulse Rate 79 77 81 Respiratory Rate 20 20 20 Blood Pressure 193/84 H 154/69 H 195/86 H Pulse Oximetry 95 96 99 11/30/17 00:00 11/30/17 08:00 Temperature 97.5 F L 97.6 F Pulse Rate 73 73 Respiratory Rate 18 17 Blood Pressure 179/80 H 147/78 H Pulse Oximetry 95 95 Intake & Output 11/29/17 11/30/17 11/30/17 18:59 06:59 18:59 Intake Total 860 / 860 150 / 150 Output Total 2 / 2 500 / 500 Balance 858 / 858 -350 / -350 Weight 57.1 kg Intake: IV 500 / 500 Cipro 400 MG/200 ML Inj 400 mg 200 / 200 In 200 ml @ 200 mls/hr IV.SIG Q12H [facility] Rx#:[id number] Oral 360 / 360 150 / 150 Output: Urine 2 / 2 500 / 500 Other: Date of Last Bowel Movement 11/28/17 # Bowel Movements 2 - Constitutional no acute distress - Routine Respiratory Exam Present: CTA bilaterally - Routine Cardiovascular Exam Present: RRR - Routine Abdominal Exam Present: soft - Routine Extremities Exam Comments: no pedal edema. - Routine Neurological Exam Present: alert - Urinary Catheter Management Straight Cath placed during this visit: yes, but has since been removed by the nurse Reason for continuing: Not indwelling catheter Insertion date: 11/26/17 Insertion time: 21:50 Removal date: 11/26/17 Removal time: 21:53 Results - Labs CBC & Chem 7: 11/28/17 05:15 11/28/17 05:15 Laboratory Results - last 24 hr 11/29/17 13:30 Vitamin B12 493 Microbiology 11/28/17 16:18 Lumbar Puncture Gram Stain - Final 11/28/17 16:18 Lumbar Puncture CSF Culture - Preliminary No growth in 48 hours 11/28/17 17:20 Wound - Foot Gram Stain - Final 11/28/17 17:20 Wound - Foot Wound Culture - Preliminary 11/26/17 21:50 Catheterized Urine Urine Culture - Final Enterococcus faecalis - Imaging Impressions Lumbar Puncture Fluoroscopy 11/28/17 00:00 CONCLUSION: 1. Uncomplicated fluoroscopically guided lumbar puncture. Clear CSF noted. Opening and closing pressures within the normal range. Assessment and Plan - Assessment (1) Fall Code(s): W19.XXXA - Unspecified fall, initial encounter Status: Acute (2) Generalized weakness Code(s): R53.1 - Weakness Status: Acute (3) UTI (urinary tract infection) Code(s): N39.0 - Urinary tract infection, site not specified Status: Acute (4) Normal pressure hydrocephalus Code(s): G91.2 - (Idiopathic) normal pressure hydrocephalus Status: Acute - Plan possible Normal pressure hydrocephalus with frequent falls CT head noted with questionable finding of NPH s/p LP MRI brain pending. Neurology consult appreciated. Frequent falls Radiographic imaging study reviewed and no evidence of fractures PT to treat and eval UTI with enterococcus - continue on Nitrofurantoin Diarrhea C. difficile PCR negative. Hypokalemia Replaced. Other chronic medical conditions Continue outpatient medications DVT prophylaxis: Bilateral SCDs Discharge Planning: needs rehab- awaiting MRI brain.
--- NOTE | 2017-11-30 10:21 | MR ---
EXAM DATE: 11/30/2017 9:19 AM EDT AGE/SEX: 77 years / Female INDICATIONS: Hydrocephalus. CLINICAL DATA: This is the patient's initial encounter. Patient reports that signs and symptoms have been present for 1 day and indicates a pain score of 0/10. MEDICAL/SURGICAL HISTORY: Chronic obstructive pulmonary disease. Gastroesophageal reflux disea se. Dementia. Diabetes and hypertension. Coronary artery stent. Bilateral hip replacement. COMPARISON: [facility], CT HEAD W/O CONTRAST, 11/26/2017. . TECHNIQUE: Multiplanar, multisequence examination of the brain was performed without contrast. FINDINGS: There is no evidence for acute infarction. There is diffuse volume loss identified with prominence of the CSF spaces, ventricles and cisterns. There is confluent increased FLAIR signal in the bilateral centrum semiovale and periventricular white matter. There is no hemorrhage or mass. CONCLUSION: 1. Diffuse volume loss with prominence of the CSF spaces. 2. Moderate white matter disease. Electronically signed by: Edgardo Crump MD 11/30/2017 10:19 AM EDT
[2017-11-30] MEDS: amLODIPine 5 MG Tablet PO SCH (10:44)
--- NOTE | 2017-11-30 15:51 | P.PNADD ---
Addendum to Inpatient Note Reason for Addendum: Additional Documentation (MRI brain was d/w and also the daughter. patient will be transferred to the main campus for neurosurgery evaluation.)
[2017-12-01] MEDS: amLODIPine 5 MG Tablet PO SCH ×2 (08:53→21:35)
[2017-12-01] MEDS: Nitrofurantoin Monohydrate-Macrocrystal 100 MG Capsule PO SCH ×2 (08:53→17:19)
--- NOTE | 2017-12-01 09:05 | P.PN ---
Subjective Interval history: Follow-up frequent falls and possible NPH. Patient is awake but confused she is only oriented to person. Physical Exam Vital signs: Vital Signs 11/30/17 12:00 11/30/17 16:00 11/30/17 20:00 Temperature 97.8 F 98.2 F 97.3 F L Pulse Rate 76 78 75 Respiratory Rate 20 Blood Pressure 142/84 H 151/69 H 183/80 H Pulse Oximetry 95 96 95 11/30/17 23:07 12/01/17 00:00 12/01/17 04:00 Temperature 98.9 F 98.4 F 98.5 F Pulse Rate 84 79 74 Respiratory Rate 18 18 Blood Pressure 225/99 H 210/87 H 201/83 H Pulse Oximetry 95 95 95 12/01/17 08:00 Temperature 97.9 F Pulse Rate 63 Respiratory Rate 17 Blood Pressure 178/74 H Pulse Oximetry 96 Intake & Output 11/30/17 12/01/17 12/01/17 18:59 06:59 18:59 Intake Total 720 / 720 20 Balance 720 / 720 20 Weight 57.2 kg Intake: Oral 720 / 720 Other: # Voids 3 # Incontinent Voids 3 Date of Last Bowel Movement 11/28/17 12/01/17 # Bowel Movements 0 1 Narrative: GENERAL: NAD with expressive aphasia SKIN: Warm and dry. Superficial wound over her right foot partially amputated second and third toes CARDIOVASCULAR: Regular rate and rhythm. RESPIRATORY: No accessory muscle use. Clear to auscultation. Breath sounds equal bilaterally. GASTROINTESTINAL: Abdomen soft, non-tender, nondistended. MUSCULOSKELETAL: Extremities without clubbing, cyanosis, or edema. No obvious deformities. NEUROLOGICAL: Awake and alert. No obvious cranial nerve deficits. Motor grossly within normal limits. - Urinary Catheter Management Straight Cath placed during this visit: yes, but has since been removed by the nurse Reason for continuing: Not indwelling catheter Insertion date: 11/26/17 Insertion time: 21:50 Removal date: 11/26/17 Removal time: 21:53 Results - Labs CBC & Chem 7: 11/28/17 05:15 11/28/17 05:15 Laboratory Results - last 24 hr 11/29/17 13:30 RPR Nonreactive Microbiology 11/28/17 17:20 Wound - Foot Gram Stain - Final 11/28/17 17:20 Wound - Foot Wound Culture - Preliminary Pseudomonas species 11/28/17 16:18 Lumbar Puncture Gram Stain - Final 11/28/17 16:18 Lumbar Puncture CSF Culture - Preliminary No growth in 48 hours - Imaging ITS Impressions Chest X-Ray 11/26/17 20:58 CONCLUSION: Mild compensated cardiomegaly. Pelvis X-Ray 11/26/17 20:58 CONCLUSION: Osteopenia without displaced fracture. Head CT 11/26/17 22:01 CONCLUSION: No evidence of acute intracranial pathology. No masses are identified. Possible normal pressure hydrocephalus. Correlation with clinical findings is necessary. . Cervical Spine CT 11/26/17 22:05 CONCLUSION: 1. Extensive multilevel degenerative disc disease without evidence of fracture Lumbar Puncture Fluoroscopy 11/28/17 00:00 CONCLUSION: 1. Uncomplicated fluoroscopically guided lumbar puncture. Clear CSF noted. Opening and closing pressures within the normal range. Head MRI 11/30/17 00:00 CONCLUSION: 1. Diffuse volume loss with prominence of the CSF spaces. 2. Moderate white matter disease. - Procedures LP Assessment and Plan - Assessment (1) Fall Code(s): W19.XXXA - Unspecified fall, initial encounter Status: Acute (2) Generalized weakness Code(s): R53.1 - Weakness Status: Acute (3) UTI (urinary tract infection) Code(s): N39.0 - Urinary tract infection, site not specified Status: Acute (4) Normal pressure hydrocephalus Code(s): G91.2 - (Idiopathic) normal pressure hydrocephalus Status: Acute - Plan Suspected Normal pressure hydrocephalus with frequent falls CT head noted with questionable finding of NPH s/p LP EEG with moderate encephalopathy Neurology consult appreciated. Neurosurgery impression more consistent with hydrocephalus ex vacuo (brain atrophy) and dementia. Does not feel strongly that this is an NPH picture. If this were felt to be the case, could consider a high volume LP and see if patient improves (as arranged via Neurology). Discussed with nursing who will update neurology. PT following recommending rehab Frequent falls Radiographic imaging study reviewed and no evidence of fractures Fall precaution UTI with enterococcus - continue on Nitrofurantoin Diarrhea history of C. difficile C. difficile PCR negative. Hypokalemia Replaced. Hypertension, uncontrolled. 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 Wound care Culture positive for Pseudomonas aeruginosa third metatarsal. No evidence of cellulitis. Topical gentamicin cream Chronic medical conditions of atherosclerotic heart disease, COPD, GERD, anemia , diabetes mellitus, high cholesterol, major depression, Hypertension, Insomnia , Osteoarthritis and Pacemaker Continue outpatient medications DVT prophylaxis: Bilateral SCDs. Pharmacological prophylaxis per neurosurgery Discharge Planning: SNF/rehab in 1-2
[2017-12-01] MEDS ORDERED: Dextrose 50% in Water 50 ML Vial IV.PUSH PRN (09:12)
[2017-12-01] MEDS: Insulin NovoLOG Aspart Correctional Sugar Inj SQ SCH ×3 (11:48→21:37)
--- NOTE | 2017-12-01 12:09 | P.CONNS ---
History of Present Illness Primary Care Provider: UNKNOWN Chief Complaint: Recurrent falls, diarrhea History of Present Illness: 77yoF with recurrent falls, NSG asked to eval for NPH after MRI obtained. [facility] - History History Provided By: Patient, Medical Record - Medical History Medical History: Medical History (Last Reviewed 12/01/17 @ 08:03 by Jeanette Davis) Atherosclerotic heart disease COPD (chronic obstructive pulmonary disease) GERD (gastroesophageal reflux disease) History of anemia History of diabetes mellitus History of high cholesterol Hx of major depression Hypertension Insomnia Osteoarthritis Pacemaker Peripheral vascular disease Polyneuropathy Surgical history unknown Surgical history unknown - Tobacco History Second Hand Smoke Exposure: No Smoking Status: Never smoker - Alcohol History How Often Do You Have a Drink Containing Alcohol: Never - Substance Use History Substance History: No History of Abuse - Travel History Recent Travel in the [place] Within the Last 8 Weeks: No Recent Travel Out of the Country Within the Last 8 Weeks: No - Immunization History Tetanus Immunization: Unable to Assess Medications and Allergies Active Medications: Active Medications Acetaminophen (Tylenol) 650 mg PO Q4H PRN PRN Reason: Temp > 100.4 Al Hydroxide/Mg Hydroxide (Milk Of Playdate Appkb [place]) 30 ml PO Q12H PRN PRN Reason: Mild Constipation Amlodipine Besylate (Norvasc) 5 mg PO DAILY AVRIL Last Admin: 12/01/17 08:53 Dose: 5 mg Bisacodyl (Dulcolax Supp) 10 mg RECTAL DAILY PRN PRN Reason: SEVERE CONSITIPATION Clonidine HCl (Catapres) 0.1 mg PO Q6H PRN PRN Reason: SEE LABEL COMMENTS Dextrose (D50w Vial) 50 ml IV.PUSH UNSCH PRN PRN Reason: PER HYPOGLYCEMIA PROTOCOL Enalaprilat (Vasotec Inj) 2.5 mg IV.PUSH Q6H PRN PRN Reason: SBP>160, DBP>90 Last Admin: 11/29/17 15:56 Dose: 2.5 mg Glucagon (Glucagon Inj) 1 mg OTHER UNSCH PRN PRN Reason: for Hypoglycemia Protocol Sodium Chloride (Ns Inj) 500 mls @ 0 mls/hr IV.SIG BOLUS AVRIL Last Infusion: 11/27/17 00:50 Dose: Infused Insulin Aspart (Novolog Insulin Correctional Sugar Inj) 0 unit SQ ACHS AVRIL; Protocol Last Admin: 12/01/17 11:48 Dose: Not Given Nitrofurantoin Macrocrystals (Macrobid) 100 [facility]IDPC [facility] Stop: 12/06/17 09:44 Last Admin: 12/01/17 08:53 Dose: 100 mg Ondansetron HCl (Zofran Inj) 4 mg IV.PUSH Q6H PRN PRN Reason: NAUSEA OR VOMITING Sodium Chloride (Ns Flush) 2 ml IV.FLUSH PRN PRN PRN Reason: FLUSH AFTER USING IV ACCESS Last Admin: 11/29/17 08:50 Dose: 2 ml Allergies Allergy/AdvReac Type Severity Reaction Status Date / Time aspirin Allergy Severe GI Verified 11/27/17 04:35 DISTRESS IF UNCOATED ASPIRIN codeine Allergy Severe NAUSEA AND Verified 11/27/17 04:35 VOMITING penicillin G Allergy Severe RASH,SHORTNESS Verified 11/27/17 04:35 OF BREATH *MDRO Multi-Drug Resistant Allergy Unknown Diarrhea Uncoded 11/26/17 20:17 Organism Home Medications Medication Instructions Recorded Confirmed Type acetaminophen [Mapap 325 mg PO Q4-6H PRN 11/26/17 11/26/17 History (acetaminophen)] alendronate 70 mg PO QWEEK 11/26/17 11/26/17 History [id number]-koytpzoh-[id number] 1 tab PO DAILY 11/26/17 11/26/17 History [Cerovite Senior] omega [id number]-tho-ktz-fish oil [Fish Oil] 1,000 mg PO DAILY 11/26/17 11/26/17 History Exam Vital signs: Vital Signs 11/30/17 16:00 11/30/17 20:00 11/30/17 23:07 Temperature 98.2 F 97.3 F L 98.9 F Pulse Rate 78 75 84 Respiratory Rate 16 20 18 Blood Pressure 151/69 H 183/80 H 225/99 H Pulse Oximetry 96 95 95 12/01/17 00:00 12/01/17 04:00 12/01/17 08:00 Temperature 98.4 F 98.5 F 97.9 F Pulse Rate 79 74 63 Respiratory Rate 18 18 17 Blood Pressure 210/87 H 201/83 H 178/74 H Pulse Oximetry 95 95 96 Intake & Output 11/30/17 12/01/17 12/01/17 18:59 06:59 18:59 Intake Total 720 / 720 Balance 720 / 720 Weight 57.2 kg Intake: Oral 720 / 720 Other: # Voids 3 # Incontinent Voids 3 Date of Last Bowel Movement 11/28/17 12/01/17 # Bowel Movements 0 1 Narrative: Slow in speech, alert, able to reproduce name with difficulty Follows commands x full strength x 4 CN intact Results - Laboratory Findings CBC and BMP: 11/28/17 05:15 11/28/17 05:15 Abnormal lab findings: Abnormal Labs 11/26/17 11/26/17 11/26/17 21:13 21:13 21:50 Neut % (Auto) 72.6 H Bradford % (Auto) 8.1 H Baso % (Auto) Potassium 3.4 L Chloride BUN 20 H Estimated GFR 83 L POC Glucose Calcium 8.0 L Troponin I Less than 0.02 L Total Protein 6.1 L Albumin 3.0 L Urine Ketones Trace H Ur Leukocyte Esterase Small H Urine WBC 21-50 H Urine Bacteria Few H CSF RBC (4) 11/27/17 11/27/17 11/28/17 11:27 20:13 05:15 Neut % (Auto) 72.0 H Bradford % (Auto) Baso % (Auto) 2.1 H Potassium Chloride BUN Estimated GFR POC Glucose 169 H 146 H Calcium Troponin I Total Protein Albumin Urine Ketones Ur Leukocyte Esterase Urine WBC Urine Bacteria CSF RBC (4) 11/28/17 11/28/17 11/28/17 05:15 16:18 19:21 Neut % (Auto) Bradford % (Auto) Baso % (Auto) Potassium 3.4 L Chloride 109 H BUN Estimated GFR POC Glucose 117 H Calcium 7.7 L Troponin I Total Protein 5.7 L Albumin 2.8 L Urine Ketones Ur Leukocyte Esterase Urine WBC Urine Bacteria CSF RBC (4) 10 H Assessment and Plan - Plan Code Status: 77yoF with enlarged ventricles. Imaging (MRI and CT) reviewed and more consistent with hydrocephalus ex vacuo ( brain atrophy) and dementia. I do not feel strongly that this is an NPH picture. If this were felt to be the case, could consider a high volume LP and see if patient proves (as arranged via Neurology) though we do not have strong suspicion this is the case. Defer remainder workup to primary team.
[2017-12-01] MEDS: Gentamicin 0.1% Cream 15 GM Cream TOPICAL SCH (17:19)
--- NOTE | 2017-12-02 07:28 | P.PN ---
Subjective Interval history: Follow-up possible NPH. Patient has no new complaints. She is pleasantly confused. Discussed with nursing who will get update from neurology regarding recommendations from neurosurgery Physical Exam Vital signs: Vital Signs 12/01/17 08:00 12/01/17 12:00 12/01/17 12:40 Temperature 97.9 F 97.9 F Pulse Rate 63 75 Respiratory Rate 17 17 Blood Pressure 178/74 H 171/74 H 165/78 H Pulse Oximetry 96 97 12/01/17 16:00 12/01/17 18:47 12/01/17 20:00 Temperature 98.1 F 98.5 F Pulse Rate 69 78 Respiratory Rate 17 18 Blood Pressure 173/74 H 157/82 H 190/80 H Pulse Oximetry 98 96 12/02/17 00:00 12/02/17 04:00 Temperature 98.2 F 97.5 F L Pulse Rate 69 64 Respiratory Rate 18 18 Blood Pressure 132/62 160/69 H Pulse Oximetry 97 95 Intake & Output 12/01/17 12/02/17 12/02/17 18:59 06:59 18:59 Intake Total 800 / 800 20 / 20 Output Total 300 / 300 400 / 400 Balance 500 / 500 -380 / -380 Weight 58 kg Intake: Oral 800 / 800 20 / 20 Output: Urine 300 / 300 400 / 400 Other: Date of Last Bowel Movement 12/01/17 # Bowel Movements 1 Narrative: GENERAL: NAD SKIN: Warm and dry. Superficial wound over her right foot partially amputated second and third toes CARDIOVASCULAR: Regular rate and rhythm. RESPIRATORY: No accessory muscle use. Clear to auscultation. Breath sounds equal bilaterally. GASTROINTESTINAL: Abdomen soft, non-tender, nondistended. MUSCULOSKELETAL: Extremities without clubbing, cyanosis, or edema. No obvious deformities. NEUROLOGICAL: Awake and confused. No obvious cranial nerve deficits. Motor grossly within normal limits. - Urinary Catheter Management Straight Cath placed during this visit: yes, but has since been removed by the nurse Reason for continuing: Not indwelling catheter Insertion date: 11/26/17 Insertion time: 21:50 Removal date: 11/26/17 Removal time: 21:53 Results - Labs CBC & Chem 7: 11/28/17 05:15 11/28/17 05:15 Laboratory Results - last 24 hr 12/01/17 12/01/17 12/01/17 11:33 17:17 21:31 POC Glucose 94 109 106 Microbiology 11/28/17 17:20 Wound - Foot Gram Stain - Final 11/28/17 17:20 Wound - Foot Wound Culture - Final Pseudomonas aeruginosa 11/28/17 16:18 Lumbar Puncture Gram Stain - Final 11/28/17 16:18 Lumbar Puncture CSF Culture - Final No growth in 72 hours - Procedures LP Assessment and Plan - Assessment (1) Fall Code(s): W19.XXXA - Unspecified fall, initial encounter Status: Acute (2) Generalized weakness Code(s): R53.1 - Weakness Status: Acute (3) UTI (urinary tract infection) Code(s): N39.0 - Urinary tract infection, site not specified Status: Acute (4) Normal pressure hydrocephalus Code(s): G91.2 - (Idiopathic) normal pressure hydrocephalus Status: Acute - Plan Suspected Normal pressure hydrocephalus with frequent falls CT head noted with questionable finding of NPH s/p LP EEG with moderate encephalopathy Neurology consult appreciated. Neurosurgery's impression more consistent with hydrocephalus ex vacuo (brain atrophy) and dementia. Does not feel strongly that this is an NPH picture. If this were felt to be the case, could consider a high volume LP and see if patient improves (as arranged via Neurology). Discussed with nursing who will update neurology. PT following recommending rehab Frequent falls Radiographic imaging study reviewed and no evidence of fractures Fall precaution UTI with enterococcus - continue on Nitrofurantoin Diarrhea history of C. difficile C. difficile PCR negative. Hypokalemia Replaced. Hypertension, uncontrolled. Improving. 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 Wound care Culture positive for Pseudomonas aeruginosa third metatarsal. No evidence of cellulitis. Topical gentamicin cream Chronic medical conditions of atherosclerotic heart disease, COPD, GERD, anemia , diabetes mellitus, high cholesterol, major depression, Hypertension, Insomnia , Osteoarthritis and Pacemaker Continue outpatient medications DVT prophylaxis: Bilateral SCDs. Pharmacological prophylaxis per neurology may need high volume LP Discharge Planning: SNF/rehab when cleared by neurology
[2017-12-02] MEDS: Insulin NovoLOG Aspart Correctional Sugar Inj SQ SCH ×4 (08:00→21:20)
[2017-12-02 09:01] VITALS: RESP 16
[2017-12-02] MEDS: amLODIPine 5 MG Tablet PO SCH ×2 (09:15→21:20)
[2017-12-02] MEDS: Nitrofurantoin Monohydrate-Macrocrystal 100 MG Capsule PO SCH ×2 (09:15→17:30)
[2017-12-02] MEDS: Gentamicin 0.1% Cream 15 GM Cream TOPICAL SCH ×3 (09:17→17:31)
--- NOTE | 2017-12-02 17:09 | P.DS ---
Date of admission: 11/27/17 00:07 Primary care physician: UNKNOWN Anticipated date of discharge: 12/03/17 Brief History from admission: 77-year-old female who for past medical history of pacemaker implantation, suppressive aphasia, CAD, peripheral vascular disease, history of C. difficile in the past, hypertension was brought to the ED for evaluation of falls x4 of which one was witnessed at a local nursing facility where patient is a resident. Patient is a poor historian, and unable to provide any history at this time. The history is obtained from chart review below: "77-year-old female presents to the emergency department from local assisted living facility where staff noted patient to have 4 different falls today. Only one fall was reportedly witnessed. Patient was walking with her tray and a seem to lose her balance and fall. Subsequently patient was found 3 different times on the floor after an unwitnessed fall. Unknown if head injury. Patient has some form of expressive aphasia of unclear etiology and is not a good historian. Assisted living facility reports that patient has issue with conversational speech of uncertain etiology no report of stroke. Patient takes no blood thinning agents. Patient does have history of peripheral vascular disease and has undergone surgical intervention for ischemia. No report of recent fever. Patient has been at the facility for approximately 1 month and has been on the list to be seen by the but has not been seen in the past to Fridays. Patient has been noticed within the past 1 week to have large blisters to Facility physician for 2 weeks the heels of both feet of unclear etiology. Patient is identified to have a bruise to the right hip. Patient has had bilateral hip replacements in the past. Patient typically is amatory without assistive device. Patient had one episode of urinary incontinence associated with fall reported. Blood sugars have been adequately controlled. Patient has history of peripheral vascular disease diabetes pacemaker COPD depression dyslipidemia hypertension anemia PE and aortic stenting." While in the ED, a CT head was obtained and had a questionable finding of Possible normal pressure hydrocephalus. Patient was admitted on the floor and had few episode of loose stool for which C. difficile is being ruled out. Vitals with elevated BP. DS: Diagnosis - Discharge Diagnosis (1) Fall Status: Acute (2) Generalized weakness Status: Acute (3) UTI (urinary tract infection) Status: Acute (4) Normal pressure hydrocephalus Status: Acute DS: Medications - Discharge Medications Prescriptions: amlodipine [Norvasc] 5 mg PO BID #60 tab gentamicin 1 applicatio TOPICAL TID #1 g nitrofurantoin monohyd/m-cryst 100 mg PO BIDPC #8 cap DS: Summary Hospital Course: Suspected Normal pressure hydrocephalus with frequent falls CT head noted with questionable finding of NPH s/p LP EEG with moderate encephalopathy Neurology consult appreciated. Neurosurgery's impression more consistent with hydrocephalus ex vacuo (brain atrophy) and dementia. Does not feel strongly that this is an NPH picture. PT following recommending rehab Frequent falls likely secondary to UTI and hypokalemia. Radiographic imaging study reviewed and no evidence of fractures Fall precaution UTI with enterococcus - continue on Nitrofurantoin total of 7 days. Diarrhea history of C. difficile C. difficile PCR negative. Hypokalemia Replaced. Hypertension, uncontrolled. Improving. 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 Wound care Culture positive for Pseudomonas aeruginosa third metatarsal. No evidence of cellulitis. Topical gentamicin cream Chronic medical conditions of atherosclerotic heart disease, COPD, GERD, anemia , diabetes mellitus, high cholesterol, major depression, Hypertension, Insomnia , Osteoarthritis and Pacemaker Continue outpatient medications DVT prophylaxis: Bilateral SCDs. Pharmacological prophylaxis per neurology may need high volume LP - Time Spent with Patient Total time spent providing and/or coordinating discharge services: Greater than 30 minutes - Quality: VTE Deep Vein Thrombosis/Pulmonary Embolism Present on Admission: No Exam Vital signs: Vital Signs 12/01/17 18:47 12/01/17 20:00 12/02/17 00:00 Temperature 98.5 F 98.2 F Pulse Rate 78 69 Respiratory Rate 18 18 Blood Pressure 157/82 H 190/80 H 132/62 Pulse Oximetry 96 97 12/02/17 04:00 12/02/17 08:00 12/02/17 12:00 Temperature 97.5 F L 98.2 F 97.3 F L Pulse Rate 64 62 69 Respiratory Rate 18 16 16 Blood Pressure 160/69 H 127/61 115/60 Pulse Oximetry 95 98 97 Intake & Output 12/01/17 12/02/17 12/02/17 18:59 06:59 18:59 Intake Total 800 / 800 20 / 20 Output Total 300 / 300 400 / 400 Balance 500 / 500 -380 / -380 Weight 58 kg Intake: Oral 800 / 800 20 / 20 Output: Urine 300 / 300 400 / 400 Other: Date of Last Bowel Movement 12/01/17 # Bowel Movements 1 Narrative: GENERAL: NAD SKIN: Warm and dry. Superficial wound over her right foot partially amputated second and third toes CARDIOVASCULAR: Regular rate and rhythm. RESPIRATORY: No accessory muscle use. Clear to auscultation. Breath sounds equal bilaterally. GASTROINTESTINAL: Abdomen soft, non-tender, nondistended. MUSCULOSKELETAL: Extremities without clubbing, cyanosis, or edema. No obvious deformities. NEUROLOGICAL: Awake and confused. No obvious cranial nerve deficits. Motor grossly within normal limits. Results Procedures completed during hospitalization: LP Labs on day of discharge: Labs from last 24 hours 12/02/17 12/02/17 12/01/17 12:29 09:21 21:31 POC Glucose 114 H 91 106 12/01/17 17:17 POC Glucose 109 - Impressions ITS Impressions Chest X-Ray 11/26/17 20:58 CONCLUSION: Mild compensated cardiomegaly. Pelvis X-Ray 11/26/17 20:58 CONCLUSION: Osteopenia without displaced fracture. Head CT 11/26/17 22:01 CONCLUSION: No evidence of acute intracranial pathology. No masses are identified. Possible normal pressure hydrocephalus. Correlation with clinical findings is necessary. . Cervical Spine CT 11/26/17 22:05 CONCLUSION: 1. Extensive multilevel degenerative disc disease without evidence of fracture Lumbar Puncture Fluoroscopy 11/28/17 00:00 CONCLUSION: 1. Uncomplicated fluoroscopically guided lumbar puncture. Clear CSF noted. Opening and closing pressures within the normal range. Head MRI 11/30/17 00:00 CONCLUSION: 1. Diffuse volume loss with prominence of the CSF spaces. 2. Moderate white matter disease. Discharge Plan - Discharge Disposition Patient Disposition: Discharge to SNF - Discharge Condition Condition: Stable - Discharge Order Discharge Orders: Discharge Order (Routine); Ordered 12/02/17 Ordered By: Luis Green - Discharge Details Discharge Comment: dc when cleared by neurology - Physicians Team Primary Care Provider: UNKNOWN, Attending Provider: Luis Green Other Providers: Marjorie Zavala MD ; Matty Linton MD ; [facility],[place]
[2017-12-03 00:45] VITALS: O2SAT 95
[2017-12-03] MEDS: Insulin NovoLOG Aspart Correctional Sugar Inj SQ SCH (08:00)
--- NOTE | 2017-12-03 08:09 | P.PN ---
Subjective Interval history: F/u HTN. BP slightly up. Patient has no complaints denies headache or dizziness. She remains confused but calm and cooperative. Discussed with daughter and neurology. Physical Exam Vital signs: Vital Signs 12/02/17 12:00 12/02/17 20:43 12/03/17 00:00 Temperature 97.3 F L 98.3 F 98.6 F Pulse Rate 69 77 68 Respiratory Rate 16 16 16 Blood Pressure 115/60 174/73 H 141/65 H Pulse Oximetry 97 96 95 12/03/17 04:00 Temperature 98.5 F Pulse Rate 73 Respiratory Rate 16 Blood Pressure 163/69 H Pulse Oximetry 95 Intake & Output 12/02/17 12/03/17 12/03/17 18:59 06:59 18:59 Output Total 600 / 600 700 / 700 Balance -600 / -600 -700 / -700 Weight 57.7 kg Output: Urine 700 / 700 Urine Amount (Catheter) 600 / 600 Straight 600 / 600 Other: Date of Last Bowel Movement 12/01/17 Narrative: GENERAL: NAD SKIN: Warm and dry. Superficial wound over her right foot partially amputated second and third toes CARDIOVASCULAR: Regular rate and rhythm. RESPIRATORY: Clear to auscultation. Breath sounds equal bilaterally. GASTROINTESTINAL: Abdomen soft, non-tender, nondistended. MUSCULOSKELETAL: Extremities without clubbing, cyanosis, or edema. No obvious deformities. NEUROLOGICAL: Awake and confused. No obvious cranial nerve deficits. Motor grossly within normal limits. - Urinary Catheter Management Straight Cath placed during this visit: yes, but has since been removed by the nurse Reason for continuing: Not indwelling catheter Insertion date: 11/26/17 Insertion time: 21:50 Removal date: 11/26/17 Removal time: 21:53 Results - Labs CBC & Chem 7: 11/28/17 05:15 11/28/17 05:15 Laboratory Results - last 24 hr 12/02/17 12/02/17 12/02/17 09:21 12:29 17:40 POC Glucose 91 114 H 109 12/02/17 20:44 POC Glucose 181 H - Procedures LP Assessment and Plan - Assessment (1) Fall Code(s): W19.XXXA - Unspecified fall, initial encounter Status: Acute (2) Generalized weakness Code(s): R53.1 - Weakness Status: Acute (3) UTI (urinary tract infection) Code(s): N39.0 - Urinary tract infection, site not specified Status: Acute (4) Normal pressure hydrocephalus Code(s): G91.2 - (Idiopathic) normal pressure hydrocephalus Status: Acute - Plan Suspected Normal pressure hydrocephalus with frequent falls CT head noted with questionable finding of NPH s/p LP EEG with moderate encephalopathy Neurology consult appreciated. Neurosurgery's impression more consistent with hydrocephalus ex vacuo (brain atrophy) and dementia. Does not feel strongly that this is an NPH picture. PT following recommending rehab Frequent falls likely secondary to UTI and hypokalemia. Radiographic imaging study reviewed and no evidence of fractures Fall precaution UTI with enterococcus - continue on Nitrofurantoin total of 7 days. Diarrhea history of C. difficile C. difficile PCR negative. Hypokalemia Replaced. Hypertension, uncontrolled. Improving. 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 Wound care Culture positive for Pseudomonas aeruginosa third metatarsal. No evidence of cellulitis. Topical gentamicin cream Chronic medical conditions of atherosclerotic heart disease, COPD, GERD, anemia , diabetes mellitus, high cholesterol, major depression, Hypertension, Insomnia , Osteoarthritis and Pacemaker Continue outpatient medications DVT prophylaxis: Bilateral SCDs. Pharmacological prophylaxis per neurology may need high volume LP Discharge Planning: SNF/rehab when cleared by neurology
[2017-12-03 08:49] VITALS: BP 184/76; PULSE 77; TEMP 98.7
[2017-12-03] MEDS: Nitrofurantoin Monohydrate-Macrocrystal 100 MG Capsule PO SCH (08:53)
[2017-12-03] MEDS: amLODIPine 5 MG Tablet PO SCH (08:53)
[2017-12-03] MEDS: Gentamicin 0.1% Cream 15 GM Cream TOPICAL SCH (08:53)
== END 2017-12-03 11:54 ==
LOC: PHEFT 20:03 → PHEDA 20:03 → PH3 11-27 07:59 → N06 11-30 22:27
PROVIDERS: ADMIT Internal Medicine; ATTEND Internal Medicine